=== PATIENT | male | born 1990 | race Caucasian/White ===

== ENCOUNTER 2021-01-30 20:53 | Emergency (ER) | payer BC ==
[~2021-01-30] VITALS: Ht 190.5 cm; Wt 150.0 kg
[~2021-01-30 20:53] MED LIST: BENADRYL; CETIRIZINE
[2021-01-30 21:05] VITALS: BP 149/89; PULSE 95; TEMP 98.9
== END 2021-01-30 21:18 | disposition left against medical advice (07) ==
LOC: COL.ER 20:53
DX: R11.10 Vomiting, unspecified (principal)